=== PATIENT | female | born 1940 | race Caucasian/White ===

== ENCOUNTER 2019-04-24 18:23 | Inpatient (IN) | payer OTHER ==
[~2019-04-24] VITALS: Ht 167.6 cm; Wt 149.1 kg
--- NOTE | ~2019-04-24 | HC ---
[facility] [place] [address] CONSULTATION Name: MIRIAM JESUS Room #: 421-P ADM IN M.R.#: [id number] Admission: 04/24/19 ������������������ Attend Phys: Kevin Plasencia MD Discharge: ������������������ Date of : 38 Report #: [id number] THIS REPORT FOR: //name// CC: Kevin Plasencia [facility] physician/PCP DATE OF SERVICE: 04/27/2019 HISTORY OF PRESENT ILLNESS: The patient is a 78-year-old white female admitted with mental status changes, found by neighbors at home in her condominium ____. She was diagnosed with acute an encephalopathy, community-acquired pneumonia, and hypertension. There is a question regarding premorbid dementia. We do not have a good history of her prior status. I am seeing her in rehabilitation medicine consultation. PAST MEDICAL HISTORY: Per her own history. She indicates she has had bilateral total hip replacements, left knee replacement, has a left foot drop from that or apparently around the time of her prior surgery. She has some right knee pain, which is chronic and follows with ____ and has had some intermittent injections for that knee. She has a history of morbid obesity and hypothyroidism. MEDICATIONS: Please see the full medication listing. ALLERGIES: No known drug allergies. HABITS: No history of tobacco or alcohol abuse. SOCIAL HISTORY: She lives alone in a condominium, 3 steps in. Note she was able to get up and down those steps. She notes she has involved neighbors. Premorbid cane ambulator, but lately has utilized a walker. She does have a son that apparently is in the [place] [place] [facility] and has a diagnosis of OCD and schizoaffective disorder. REVIEW OF SYSTEMS: She did not offer any current complaints of chest pain, shortness of breath or abdominal discomfort. She notes she has had a lot of problems sleeping and she thinks that is what caused her to get delirious preadmission. She indicated she was staying up all night with plans to write at [employer]. PHYSICAL EXAMINATION: GENERAL: A 78-year-old obese white female, in no obvious distress. She knew the place and knew the month. She can follow basic commands without difficulty. HEENT: Facies were symmetric. VITAL SIGNS: Temperature 97.8, pulse 86, respirations 18, blood pressure 148/72. [facility] [address] [place] [address] CONSULTATION Name: MIRIAM JESUS Room #: 421-P ADM IN M.R.#: [id number] Admission: 04/24/19 ������������������ Attend Phys: Kevin Plasencia MD Discharge: ������������������ Date of : 39 Report #: [id number] NEUROLOGIC: She has functional range of motion of both upper extremities. Strength is grade 4-/5. DTRs are trace to 1. Lower extremities, she has the prior left knee incision, which is well healed. She does have some weakness of the left ankle in dorsiflexion probably a grade 3+/5. Proximal strength of the lower extremities, probably more of a grade 4-/5 to 3+/5. She has been needing assistance of 2 for chair to bed transfers. ASSESSMENT: A 78-year-old white female with the following problems: 1. Acute encephalopathy. She has acute mental status changes. 2. Community-acquired pneumonia. 3. Rule out premorbid dementia. 4. Hypertension. 5. Obesity. 6. Premorbid left foot drop. 7. 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 8. Right knee degenerative arthritis. PLAN: Therapy evaluations are underway. We are assessing her for a potential acute in-hospital inpatient rehabilitation stay. At this point, we will be glad to follow along with you regarding her rehab therapy needs. ��������������������������������������������� ���������������������������������������� By: ��������������������������������������������� [id number] Taran Guillen MD /nt
[2019-04-24 18:25] VITALS: BP 173/110
[2019-04-24 18:47] LABS: URINE BILIRUBIN NEGATIVE (Negative); URINE BLOOD NEGATIVE (Negative); URINE CLARITY CLEAR; URINE COLOR YELLOW; URINE GLUCOSE-RANDOM* NEGATIVE (Negative); URINE KETONES NEGATIVE (Negative); URINE LEUKOCYTES-REFLEX TRACE (Negative); URINE NITRITE-REFLEX NEGATIVE (Negative); URINE PROTEIN (DIPSTICK) NEGATIVE (Negative); URINE UROBILINOGEN 0.2 E.U./dl (0.2-1.0)
[2019-04-24 19:25] LABS: HEMATOCRIT 45.2 % (37.0-47.0); HEMOGLOBIN 15.2 gm/dL (12.0-15.0); MCH 34.2 pg (26.0-34.0); MCHC 33.5 g/dL (28.0-37.0); MCV 101.9 fL (80.0-100.0); PLATELET COUNT 255 thou/uL (150-400); RBC 4.44 mil/uL (4.20-5.00); RDW 14.4 % (10.5-14.5); WBC 10.6 thou/uL (4.0-11.0)
[2019-04-24 19:33] LABS: ANION GAP 13 mmol/L (7-16); BUN 22 mg/dL (7-18); CALCIUM 10.6 mg/dL (8.5-10.1); CHLORIDE 105 mmol/L (98-107); CO2 23 mmol/L (21-32); CREATININE 0.9 mg/dL (0.6-1.0); GLUCOSE 124 mg/dL (74-106); SODIUM 141 mmol/L (136-145)
[2019-04-24 19:44] LABS: MAGNESIUM 2.1 mg/dL (1.8-2.4); SGOT 36 U/L (15-37); SGPT 27 U/L (30-65); TOTAL BILIRUBIN 0.9 mg/dL (<0.1-1.0); TOTAL PROTEIN 7.6 g/dL (6.4-8.2); TROPONIN-I <0.06 ng/mL (<0.06)
[2019-04-24 19:47] LABS: PROTIME 10.5 Seconds (9.3-11.4)
[2019-04-24 19:49] LABS: ANISOCYTOSIS 1+
--- NOTE | 2019-04-24 22:11 | NUR ---
REPORT IS GIVEN AMNA COVINGTON. PT LEFT ED WITH STABLE CONDITIONS.
[2019-04-24 22:12] VITALS: BP 128/68
[2019-04-24 22:25] LABS: TSH 2.728 uIU/mL (0.358-3.740)
[2019-04-24 23:00] VITALS: BP 148/86
[2019-04-25] MEDS ORDERED: PROTONIX40 M1 PO (02:50)
[2019-04-25] MEDS ORDERED: SYNTHROID200 MCG PO (02:50)
[2019-04-25] MEDS ORDERED: LOPRESSOR25 PO (02:50)
--- NOTE | 2019-04-25 03:41 | NUR ---
PT ARRIVED UNIT AT ABOUT 2230. PT A/OX4 BUT FORGETFUL. VITAL SIGNS STABLE, ASSESSMET CHARTED. NO COMPLAINTS OF PAIN. ADMISSION COMPLETE. PT UNABLE TO REMEMBER ALL HOME MEDS. FREQUENT CHECKS, Q2 TURNS. PT RESTED WELL FOR THE REST OF NIGHT. PT SLIGHTLY TACHY, ESPECIALLY WITH ACTIVITY. WILL CONTINUE TO CLOSELY MONITOR.
[2019-04-25 05:25] LABS: CALCIUM 8.9 mg/dL (8.5-10.1); CREATININE 0.9 mg/dL (0.6-1.0); POTASSIUM 4.4 mmol/L (3.5-5.1)
[2019-04-25 08:05] VITALS: BP 138/72
[2019-04-25 11:05] VITALS: BP 111/88
[2019-04-25 15:39] VITALS: BP 102/49
--- NOTE | 2019-04-25 18:30 | NUR ---
PT ASSESSED AT START OF SHIFT. PT ORIENTED TO SITUATION BUT MENTATION IS CONFUSED AT TIMES. INCONTINENT OF BOWEL AND BLADDER. EATING WELL. SKIN INTACT. EXP WHEEZES THIS AM. NONPRODUCTIVE COUGH NOW SOUNDING LOOSER.
[2019-04-25 22:07] VITALS: BP 113/52
--- NOTE | 2019-04-26 01:28 | NUR ---
ASSESSMENT: PT REMAIN ALERT AND ORIENT TIMES THREE WITH CONFUSION. FOLLOW COMMANDS AND IS COOPERATIVE WITH POC. NO SKIN ISSUES. PT TRANSFERRED TO [facility] LEVEL OF CARE. VSS, AFEBRILE. SR WITH PVC'S POST BEING DC FROM BEING MONITORED. TRIES TO HELP WITH TURNS. PT HAD SMEARS FOR BM. PASSING FLATUS. RT TX EFFECTIVE, NON-PRODUCTIVE COUGH. EXP. WHEEZE NOTED. SLOW PROGRESS TOWARDS DC GOALS, WILL CONTINUE TO MONITOR.
[2019-04-26 04:58] VITALS: BP 174/91
[2019-04-26 05:41] LABS: HEMATOCRIT 36.2 % (37.0-47.0); MCH 34.2 pg (26.0-34.0); MCHC 33.6 g/dL (28.0-37.0); MCV 101.8 fL (80.0-100.0); RBC 3.56 mil/uL (4.20-5.00); RDW 14.2 % (10.5-14.5); WBC 8.6 thou/uL (4.0-11.0)
[2019-04-26 05:50] LABS: HEMOGLOBIN 12.2 gm/dL (12.0-15.0)
[2019-04-26 05:53] LABS: ALBUMIN 2.6 g/dL (3.4-5.0); CALCIUM 8.2 mg/dL (8.5-10.1); CREATININE 0.8 mg/dL (0.6-1.0); POTASSIUM 4.1 mmol/L (3.5-5.1); TOTAL BILIRUBIN 0.5 mg/dL (<0.1-1.0); TOTAL PROTEIN 5.9 g/dL (6.4-8.2)
--- NOTE | 2019-04-26 10:33 | NUR ---
ASSUMED CARE OF PT AT 0700. ASSESSMENT CHARTED. DENIES PAIN. ROOM AIR. INCONTINENT. PT TRANSFERED TO [facility] VIA WHEELCHAIR AND ALL BELONGINGS IN STABLE CONDITION.
--- NOTE | 2019-04-26 13:38 | EKG ---
[place] [address] [place] [address] ELECTROCARDIOGRAM REPORT Name: MIRIAM JESUS Room #: 421-P ADM IN M.R.#: [id number] ������������������ Admission: 04/24/19 ������������������ Attend Phys: Miguel Angel Garcia MD Discharge: ������������������ Date of : 39 Report #: [id number] ����������������������������������������������������������������� [id number] THIS REPORT FOR: //name// [facility] ED Test Date: 2019-04-24 Test Time: 20:28:30 Pat Name: MIRIAM JESUS Department: Room: 421 Gender: F Material Handling Supervisor: FLAQUITA : 1940 Requested By: Nicko Ann Order Number: [id number] MD: Thony Gallardo Measurements Intervals [place] Rate: 87 P: 42 ME: 158 QRS: -40 QRSD: 105 T: 49 QT: 383 QTc: 461 Interpretive Statements Sinus rhythm Multiple ventricular premature complexes Left axis deviation Abnormal R-wave progression, late transition No previous ECG available for comparison Electronically Signed On 04-26-2019 13:37:58 CDT by Thony Gallardo [email or web address] ��������������������������������������������� <ELECTRONICALLY SIGNED> ���������������������������������������� By: Thony Gallardo MD, [facility] ��������������������������������������������� 04/26/19 1337 27 27 Thony Gallardo MD, [facility] /EPI
[2019-04-26 15:50] VITALS: BP 152/72
--- NOTE | 2019-04-26 18:30 | NUR ---
PT RECEIVED FROM CCU AT 1100 TO RM 421. ALERT AND FORGETFUL. UP TO THE BSC W/ WALKER W/ ASSIST OF 2. SHE TRANSFERRED TO THE RECLINER AND SAT UP MUCH OF AFTERNOON. INCONTINENT OF BM TWICE. EATING AND DRINKING WELL. NO C/O PAIN. STILL W/ SOME EXPIRATORY WHEEZES AND NONPRODUCTIVE COUGH.
[2019-04-26 20:03] VITALS: BP 107/59
--- NOTE | 2019-04-27 02:50 | NUR ---
PATIENT ALERT AND ORIENTED WITH SOME CONFUSION AT TIMES, HOWEVER, EASILY REORIENTED. SITTING IN CHAIR AT CHANGE OF SHIFT AND IT TOOK TWO ASSIST FROM CHAIR TO BED. IVPB'S INFUSED W/O COMPLICATION. PATIENT REQUESTED BRIEF DURING THE NIGHT. PATIENT HAS A NON-PRODUCTIVE COUGH. MEDICATED FOR PAIN X1 AT TIME OF NOTE. WILL MONITOR.
[2019-04-27 04:17] VITALS: BP 148/72
[2019-04-27 08:00] VITALS: BP 142/65
--- NOTE | 2019-04-27 10:28 | NUR ---
Assess due to pt with high BMI 53=class III extreme obesity. Admit from home with altered mental status and encephalopathy. More alert, eating and drinking without difficulty. Continue on heart healthy diet. Low nutrition risk
--- NOTE | 2019-04-27 15:28 | NUR ---
PT ADMITTED RELATED TO [facility]ITY ACQUIRED PNA. CM REVIEWED CHART AND SPOKE WITH CARE TEAM. CM MET WITH PT AT BEDSIDE THIS DAY. PT IS A&O X4. CM ROLE INTRODUCED. PT INDICATED SHE LIVES ALONE IN A CONDO WITH 2 STEPS TO ENTER THEN A STEP ON PLATFORM LIFT INTO HER APARTMENT. PT INDICATED SHE HAS A FWW AND A MANUAL WHEELCHAIR SHE GOT FROM [employer]. SHE INDICATED THAT SHE HAS HELP WITH [employer] THROUGH [facility]. SHE INDICATED NO HH HX. PT INDICATED HER DTR IS HER CONTACT BUT HER PHONE NUMBER ISN'T LISTED IN OUR SYSTEM. HER FRIEND ZOE IS LISTED EMERGENCY CONTACT. PT'S PCPC IS DR. YANCY PAN. SHE INDICATED SHE WANTS TO RETURN HOME ONCE MEDICALLY STABLE SHE HAS A CAT SHE NEEDS TO CARE FOR. CM ASKED PT IS SHE WOULD BE AGREEABLE WITH POST ACUTE CARE STAY AND SHE INDICATED SHE WOULDN'T BE. CM TO FOLLOW INDICATED WITH DC PLANNING.
[2019-04-27 16:15] VITALS: BP 141/93
--- NOTE | 2019-04-27 18:18 | NUR ---
ASSUMED CARE OF PT AT 0700. ASSESSMENT CHARTED. A&O,X4 FORGETFUL AT TIMES. C/O CHRONIC NECK AND BACK PAIN, TYLENOL GIVEN ORDERED. PT REQUESTING TOPICAL CREAM FOR PAIN RELIEF, DISCUSSED WITH PHYSICIAN. NEW MED ORDERED, GIVEN ORDERED. PT UP WITH ASSIST AND WALKER. INCONTINENT AT TIMES. ROOM AIR, SATS ABOVE 92%. CALL LIGHT WITHIN REACH, CALLS APPROPRIATELY. SLOWLY PROGRESSING TOWARDS GOALS.
[2019-04-27 19:31] VITALS: BP 158/91
[2019-04-28 04:28] VITALS: BP 174/106
--- NOTE | 2019-04-28 05:47 | NUR ---
A/O, calm and pleasant; afebrile; soa on activity, 1L O2 nasal cannual was administrated around 3 am due to O2 saturation decreased to 80s% with room air; crackle was heard on the base of both lungs, edema 2+ was found in both legs. C/o pain in neck, pain medication given and worked; BP elevated this AM, Metoprolol, which was scheduled at 9 am, was given due to order from the nursing practioner. Will keep monitoring.
[2019-04-28 06:18] LABS: HEMATOCRIT 38.2 % (37.0-47.0); HEMOGLOBIN 12.8 gm/dL (12.0-15.0); MCH 34.1 pg (26.0-34.0); MCHC 33.6 g/dL (28.0-37.0); MCV 101.5 fL (80.0-100.0); RBC 3.76 mil/uL (4.20-5.00); WBC 8.5 thou/uL (4.0-11.0)
[2019-04-28 06:31] LABS: CALCIUM 9.4 mg/dL (8.5-10.1); CREATININE 0.8 mg/dL (0.6-1.0); POTASSIUM 4.1 mmol/L (3.5-5.1)
[2019-04-28 07:50] VITALS: BP 166/104
--- NOTE | 2019-04-28 15:05 | NUR ---
Assumed care of pt at 0700. Pt worked with PT today and got up to the chair x1 assist. 2L O2. Talked to pt's family on the phone and updated on pt. Diclofenac gel applied to neck, right shoulder, and left knee for chronic pain. Fall precautions in place. Will continue to monitor.
[2019-04-28 15:48] VITALS: BP 161/104
--- NOTE | 2019-04-28 16:17 | NUR ---
PT'S SON LIZZIE JESUS CALLED FROM PSYCH FACILITY IN [facility] AND INDICATED THAT HE THOUGHT HIS MOM SHOULD GO FOR A POST ACUTE CARE STAY UPON DC. CM INDICATED CARE TEAM ARE RECOMMENDING IT BUT THAT PT IS STATING THAT SHE ISN'T AGREEABLE TO GOING AND WISHED TO DC HOME. LIZZIE PROVIDED CONTACT INFO FOR PT'S DTR [facility]IELE[facility]ES[facility] [employer] . CM CALLED AND SPOKE WITH DTR AND SHE IS ALSO WANTING PT TO GO FOR A POST ACUTE CARE STAY. CM SPOKE WITH ALL ABOUT 5N ACUTE INPATIENT REHAB AND FAMILY WANT FOR PT TO GO. PT WOULD BENEFIT FROM VISIT WITH [facility]. CM TO FOLLOW INDIATED WITH DC PLANNING.
[2019-04-28 20:30] VITALS: BP 163/87
--- NOTE | 2019-04-28 23:48 | NUR ---
ASSUMED CARE OF PT @1900. PT LAYIING IN BED A&OX3. C/O OF NECK PAIN PAIN MED GIVEN FOR MANAGEMENT. POC DONE. ABX GIVEN AND SLEEPING PILLS. PT CALLS TO LET NEEDS KNOWN. 2+ EDEMA ON LOWER EXTREMITIES NOTED. FALL PREC IN PLACE WILL CONTINUE TO MONITOR
[2019-04-29 03:30] VITALS: BP 144/88
[2019-04-29 07:31] VITALS: BP 178/98
[2019-04-29] MEDS ORDERED: LOPRESSOR25 PO (08:25)
[2019-04-29] MEDS ORDERED: ZITHROMAX TRI-500 MG PO (08:26)
--- NOTE | 2019-04-29 11:42 | NUR ---
Assumed care of pt at 0700. PT/OT worked with pt this am. Chronic neck pain. Up with assist x1/gaitbelt and walker. Awaiting gor discharge to inpatient rehab unit. Fall precautions in place. Will continue to monitor.
[2019-04-29 15:26] VITALS: BP 154/97
[2019-04-29 19:23] VITALS: BP 151/91
--- NOTE | 2019-04-30 03:56 | NUR ---
ASSUMED CARE OF PT @1900. PT A&OX4 AT THIS SHIFT. DENIES PAIN. EXCITED ABT D/C PLANS. PT UP WITH ASSISTX1. POC DONE, ABX AND EVENING MEDS GIVEN. PT LETS CONCERNS KNOWN. FALL PREC IN PLACE AND CALL LIGHT WITHIN REACH WILL CONTINUE TO MONITOR.
[2019-04-30 04:42] VITALS: BP 147/92
--- NOTE | 2019-04-30 09:00 | NUR ---
ASSUMED PATIENT CARE AT 0715. PATIENT VERBALIZED INFORMATION R/T DISCHARGE UPON SHIFT CHANGE REPORT. STAND-BY ASSIST UP TO CHAIR FOR BREAKFAST. COMPLIANT WITH MEDICATIONS. FAMILY TO BE HERE BETWEEN 9:30-11:00 TO MEET WITH S.W. FOR DISCHARGE PLANNING.
[2019-04-30 10:37] VITALS: BP 147/92
--- NOTE | 2019-04-30 12:21 | NUR ---
DISCHARGE NOTE: PATIENT DISCHARGED TO HOME, ORDERS PER DR. Bryan MOURA. PRESCRIPTIONS FOR METROPOLOL 25 MG BID PO AND ZITHROMAX 500 MG DAILY FOR 5 DAYS GIVEN TO PATIENT. FULL SET OF DISCHARGE PAPERWORK ALSO GIVEN TO PATIENT.
[2019-04-30 12:46] VITALS: BP 147/92
== END 2019-04-30 12:24 | disposition home or self-care (01) | DRG 193 ==
LOC: ER 18:23 → 4E 20:44 → EROBS 20:44 → 2N 22:12 → 4E 04-26 10:31
PROVIDERS: Emergency Medicine; Hospitalist; Nurse Practitioner Family; ADMIT Hospitalist
DX: J18.9 Pneumonia, unspecified organism (principal); J96.91 Respiratory failure, unspecified with hypoxia; G93.40 Encephalopathy, unspecified; Z68.43 Body mass index [BMI] 50.0-59.9, adult; I10 Essential (primary) hypertension; Z96.643 Presence of artificial hip joint, bilateral; Z96.652 Presence of left artificial knee joint; E66.01 Morbid (severe) obesity due to excess calories; E03.9 Hypothyroidism, unspecified; M17.11 Unilateral primary osteoarthritis, right knee; F03.90 Unspecified dementia, unspecified severity, without behavioral disturbance, psychotic disturbance, mood disturbance, and anxiety; D53.9 Nutritional anemia, unspecified; Z60.2 Problems related to living alone; Z79.899 Other long term (current) drug therapy
CPT/HCPCS: 10081; 10084; 10183